=== PATIENT | female | born 1950 ===

== ENCOUNTER 2017-01-23 06:01 | Day surgery (SDC) | payer BC ==
[2017-01-18 09:52] VITALS: RESP 18
[2017-01-23 06:34] VITALS: BMI 31.5
[2017-01-23] MEDS ORDERED: Lactated Ringer's 1,000 ML IV ONE (06:40)
[2017-01-23] MEDS ORDERED: Propofol 10 mg/ml Inj (20 ML) ONE (07:18)
[2017-01-23] MEDS ORDERED: Midazolam 2 MG/2 ML VIAL ONE (07:18)
[2017-01-23] MEDS ORDERED: Bupivacaine 0.5% Inj(30mL) ONE (08:16)
[2017-01-23] MEDS ORDERED: ceFAZolin IV 1 gm in Dextrose 1 GM/50 ML BAG IVPB ONE (08:16)
[2017-01-23] MEDS ORDERED: Lidocaine 1% Inj (20ml) ONE (08:19)
[2017-01-23] MEDS ORDERED: Lidocaine 1% Inj (20ml) IJ ONE (08:33)
[2017-01-23] MEDS ORDERED: HYDROmorphone 0.5 mg/0.5 ml ISec IVP PRN (08:57)
[2017-01-23] MEDS ORDERED: Oxycodone/Acetaminophen 5/325 mg Tab PO PRN (08:59)
--- NOTE | 2017-01-23 08:59 | CP.SDSHP ---
Same Day Surgery [facility] & P - Allergies Allergies: Allergies pineapple Allergy (Verified 08/22/15 04:54) ITCHING - Physical Exam Vital Signs: Vital Signs 01/23/17 01/23/17 06:24 06:26 Temperature 98.3 F Pulse Rate 78 78 Respiratory 18 Rate Blood Pressure 139/91 H O2 Sat by Pulse 96 Oximetry Short Stay Discharge - Short Stay Discharge Admitting Diagnosis/Reason for Visit: L72.3 Disposition: HOME/ ROUTINE Referrals: David Jimenez MD [Primary Care Provider] - Follow-up: Follow up in the office in 2 weeks Additional Instructions (Diet, Activity): Keep incision dry and clean, remove packing in 2 days Progress Note/Discharge Note with Instructions: Patient came to the hospital and underwent I&D of the posterior left shoulder abscess
[2017-01-23] MEDS ORDERED: Lactated Ringer's 1,000 ML IV SCH (09:00)
--- NOTE | 2017-01-23 09:05 | PCM.SURG1 ---
Surgeon's Initial Post Op Note - Surgeon's Notes Surgeon: Marybel Laser Beam Color Scanner Operator: none Type of Anesthesia: IV Sedation Anesthesia Administered By: Kenan Pre-Operative Diagnosis: Left posterior shoulder cyst Operative Findings: 3 ml of pus Post-Operative Diagnosis: Left posterior shoulder abscess Operation Performed: Incision amnd Drainage of the left posterior shoulder abscess Specimen/Specimens Removed: wound cultures Estimated Blood Loss: EBL {In ML}: 2 Blood Products Given: N/A Drains Used: No Drains Post-Op Condition: Good Date of Surgery/Procedure: 01/23/17 Time of Surgery/Procedure: 08:30
[2017-01-23 10:10] VITALS: BP 132/85; PULSE 60; TEMP 97.4
[2017-01-23 10:41] VITALS: O2SAT 98
--- NOTE | 2017-01-23 11:50 | OP ---
PROCEDURE DATE: PREOPERATIVE DIAGNOSIS: Left posterior shoulder cyst. POSTOPERATIVE DIAGNOSIS: Left posterior shoulder cyst abscess. PROCEDURE: Incision and drainage of the left posterior shoulder abscess. SURGEON: Charles No MD. DATA ANALYSIS INTERN: None. TYPE OF ANESTHESIA: Local with sedation. INTRAOPERATIVE FINDINGS: 3 mL of purulent material expressed. IV FLUID INTAKE: Crystalloids. ESTIMATED BLOOD LOSS: 2 mL. SPECIMEN: Wound culture. BRIEF HISTORY: Ms. Antony is a very pleasant 66-year-old female, who presented to my office complaining of some swelling and pain to the left posterior shoulder cyst that she had for several months; however, lately it has been bothering her more. Upon further investigation in my office, the patient was found to have some erythema around the area and was started on Augmentin antibiotic. Subsequent to that, the patient was brought into the operating room for the excision of the cyst. All the risks and benefits of the procedure were explained to the patient and with the patient having a full understanding of all the risks and benefits involved, informed consent was obtained and the patient was taken to the operating room for above-stated procedure. DESCRIPTION OF PROCEDURE: The patient was brought into the operating room and placed in a right lateral decubitus position. Subsequent to that, the patient's left posterior shoulder was prepped with ChloraPrep stick and draped in the standard surgical fashion. Prior to the beginning of the procedure, the patient received prophylactic Ancef antibiotic. Time-out was called in the room and everyone in the room were in agreement. Using the 1% lidocaine anesthetic, the area around the cyst of the posterior shoulder was infiltrated with local anesthetic and subsequent to that using 15 blade scalpel knife, approximately a 2 cm incision was made right on top of the cyst and at this point in time, dissection was carried down with electrical cautery. However, upon further dissection, it appeared that the cyst had some purulent material that was expressed, approximately 3 mL. Wound cultures were obtained. At this point in time, I made a decision to just do incision and drainage of the left posterior shoulder abscess and washed it out with some sterile saline and packed it with half inch packing. At this point in time, the patient's shoulder was washed and dried and clean dressing with 4x4 and Tegaderm were applied to the site of the incision. The patient was successfully transferred to the stretcher and taken to the recovery room in a stable condition. At the end of the procedure, all instrument counts, needles, and sponges were correct. Charles No MD
== END 2017-01-23 11:08 | disposition home or self-care (01) ==
LOC: H.OPSURG 06:01
PROVIDERS: ATTEND Surgery
DX: L72.3 Sebaceous cyst (principal); E78.5 Hyperlipidemia, unspecified; K21.9 Gastro-esophageal reflux disease without esophagitis; E66.9 Obesity, unspecified; R06.83 Snoring
CPT/HCPCS: 23030; 87070; J0690; J2250; J3010; J7120